=== PATIENT | female | born 1950 | race Asian ===

== ENCOUNTER 2018-05-15 17:40 | Emergency (ER) | payer MEDICAID ==
[2018-05-15] MEDS: ACETAMINOPHEN 500 MG TAB PO (18:27)
== END 2018-05-15 19:56 | disposition home or self-care (01) ==
LOC: FTE 17:40
DX: S50.01XA Contusion of right elbow, initial encounter (principal); I10 Essential (primary) hypertension; V49.59XA Passenger injured in collision with other motor vehicles in traffic accident, initial encounter; Z79.82 Long term (current) use of aspirin
CPT/HCPCS: 73080; 73080-RT; 99283-25

== ENCOUNTER 2018-07-10 15:08 | Emergency (ER) | payer MEDICAID ==
[2018-07-10] MEDS: DIPHENHYDRAMINE 50 MG INJ IV (15:38)
[2018-07-10] MEDS: FAMOTIDINE 20 MG INJ IV (15:38)
[2018-07-10] MEDS: EPINEPHrine 1 MG INJ IM (15:38)
== END 2018-07-10 19:16 | disposition home or self-care (01) ==
LOC: E/R 15:08
DX: L29.9 Pruritus, unspecified (principal); T45.0X5A Adverse effect of antiallergic and antiemetic drugs, initial encounter; I10 Essential (primary) hypertension; Z79.82 Long term (current) use of aspirin
CPT/HCPCS: 96372; 96374; 96375; 99284-25

== ENCOUNTER 2018-10-01 21:43 | Emergency (ER) | payer MEDICAID ==
[2018-10-01] MEDS: ONDANSETRON 4 MG INJ IV (23:50)
[2018-10-01] MEDS: morphine 2 MG INJ IV (23:50)
[2018-10-02 00:02] LABS: ADD MAN DIFF? NO
[2018-10-02 00:04] LABS: BASOPHIL # 0.1 10^3/ul (0.0-0.1); BASOPHILS % 0.7 % (0.0-2.0); EOSINOPHILS # 0.1 10^3/ul (0.0-0.5); HEMATOCRIT 39.3 % (37.0-47.0); HEMOGLOBIN 13.3 g/dl (12.0-16.0); LYMPHOCYTES # 1.4 10^3/ul (0.8-2.9); LYMPHOCYTES % 20.1 % (15.0-51.0); MEAN CORPUSCULAR HGB CONC 33.8 g/dl (32.0-37.0); MEAN CORPUSCULAR VOLUME 85.6 fl (82.0-101.0); MEAN PLATELET VOLUME 8.9 fl (7.4-10.4); MONOCYTE # 0.8 10^3/ul (0.3-0.9); NEUTROPHIL # 4.5 10^3/ul (1.6-7.5); NEUTROPHILS % 65.9 % (39.0-77.0); PLATELET COUNT 245 10^3/UL (140-415); RED BLOOD COUNT 4.59 10^6/ul (4.20-5.40); RED CELL DISTRIBUTION WIDTH 12.6 % (11.5-14.5)
[2018-10-02 00:04] LABS: WHITE BLOOD COUNT 6.9 10^3/ul (4.8-10.8)
[2018-10-02 00:22] LABS: ALANINE AMINOTRANSFERASE 27 IU/L (13-69); ALBUMIN 4.2 g/dl (3.3-4.9); ALBUMIN/GLOBULIN RATIO 1.27; ALKALINE PHOSPHATASE 60 IU/L (42-121); ANION GAP 8 (5-13); ASPARTATE AMINO TRANSFERASE 25 IU/L (15-46); BILIRUBIN,INDIRECT 0.9 mg/dl (0-1.1); BILIRUBIN,TOTAL 0.9 mg/dl (0.2-1.3); BLOOD UREA NITROGEN 16 mg/dl (7-20); CALCIUM 9.5 mg/dl (8.4-10.2); CARBON DIOXIDE 32 mmol/L (21-31); CHLORIDE 99 mmol/L (97-110); CREATININE 0.91 mg/dl (0.44-1.00); Estimated GFR > 60 mL/min (>60); GLUCOSE 118 mg/dl (70-220); LIPASE 71 U/L (23-300); POTASSIUM 3.1 mmol/L (3.5-5.1); SODIUM 139 mmol/L (135-144); TOTAL PROTEIN 7.5 g/dl (6.1-8.1)
[2018-10-02 00:34] LABS: TROPONIN-I < 0.012 ng/ml (0.000-0.120)
[2018-10-02] MEDS: POTASSIUM CHLORIDE (SR) 20 MEQ TAB PO (01:59)
== END 2018-10-02 02:01 | disposition home or self-care (01) ==
LOC: E/R 10-02 02:01
DX: S50.12XA Contusion of left forearm, initial encounter (principal); I10 Essential (primary) hypertension; M79.18 Myalgia, other site; E87.6 Hypokalemia; S80.01XA Contusion of right knee, initial encounter; S80.02XA Contusion of left knee, initial encounter; V43.52XA Car driver injured in collision with other type car in traffic accident, initial encounter; Z79.82 Long term (current) use of aspirin; Z85.3 Personal history of malignant neoplasm of breast
CPT/HCPCS: 36415; 71250; 74176; 80053; 83690; 84484; 85025; 93005; 96374; 96375; 99285-25

== ENCOUNTER 2018-12-11 11:22 | Emergency (ER) | payer MEDICAID ==
[2018-12-11] MEDS: DIPHENHYDRAMINE 2.5 MG/ML 5ML CUP PO (11:50)
[2018-12-11] MEDS: FAMOTIDINE 20 MG TAB PO (11:50)
[2018-12-11] MEDS: METHYLPREDNISOLONE 125 MG INJ IM (11:51)
[2018-12-11] MEDS: ONDANSETRON (ODT) 4 MG TAB ODT (12:48)
== END 2018-12-11 13:57 | disposition home or self-care (01) ==
LOC: FTE 11:22
DX: L50.0 Allergic urticaria (principal); I10 Essential (primary) hypertension; Z79.82 Long term (current) use of aspirin; Z85.3 Personal history of malignant neoplasm of breast
CPT/HCPCS: 96372; 99284-25